=== PATIENT | female | born 1995 | race Caucasian/White ===

== ENCOUNTER 2017-11-27 11:47 | Emergency (ER) | payer OTHER | END 2017-11-27 12:53 | disposition home or self-care (01) | LOC: FTE 11:47 | DX: Z48.02 Encounter for removal of sutures (principal) | CPT/HCPCS: 99281; Z7502 ==

== ENCOUNTER 2017-11-28 11:25 | Emergency (ER) | payer OTHER ==
[2017-11-28 12:49] LABS: URINE BLOOD (Dip) POC 3+ (NEGATIVE); URINE GLUCOSE (Dip) POC Negative (NEGATIVE); URINE KETONES (Dip) POC Negative (NEGATIVE); URINE LEUKOCYTE EST (Dip) POC 1+ (NEGATIVE); URINE NITRITE (Dip) POC Negative (NEGATIVE); URINE TOTAL PROTEIN POC 1+ (NEGATIVE)
[2017-11-28 12:49] LABS: URINE PH (Dip) POC 8.5 (5.0-8.5)
== END 2017-11-28 13:30 | disposition left against medical advice (07) ==
LOC: FTE 11:25
DX: N39.0 Urinary tract infection, site not specified (principal); R31.9 Hematuria, unspecified; F52.6 Dyspareunia not due to a substance or known physiological condition
CPT/HCPCS: 81003; 81025; 87591; 99284